=== PATIENT | female | born 1990 | race Caucasian/White ===

== ENCOUNTER 2017-12-10 18:32 | Emergency (ER) | payer OTHER ==
[2017-12-10] MEDS ORDERED: ACETAMINOPHEN 325 MG TABLET PO ONE (19:24)
--- NOTE | 2017-12-10 19:24 | ER Document Report ---
ED Medical Screen (RME) - General Chief Complaint: Flu Symptoms Stated Complaint: SORE THROAT,BODY PAIN Time Seen by Provider: 12/10/17 19:20 Notes: cold symptoms x 2-3 days, + sore throat. Fever started yesterday. No flu shot this year. + n/v x 3, no diarrhea. I have greeted and performed a rapid initial assessment of this patient. A comprehensive ED assessment and evaluation of the patient, analysis of test results and completion of the medical decision making process will be conducted by additional ED providers. TRAVEL OUTSIDE OF THE [place] IN LAST 30 DAYS: No - Related Data Allergies/Adverse Reactions: No Known Allergies Allergy (Unverified 12/10/17 19:21) Physical Exam - Vital signs Vitals: Temp Pulse Resp BP Pulse Ox 101.5 F H 115 H 18 131/86 H 98 12/10/17 18:37 12/10/17 18:37 12/10/17 18:37 12/10/17 18:37 12/10/17 18:37 Course - Vital Signs Vital signs: Temp Pulse Resp BP Pulse Ox 101.5 F H 115 H 18 131/86 H 98 12/10/17 18:37 12/10/17 18:37 12/10/17 18:37 12/10/17 18:37 12/10/17 19:49
--- NOTE | 2017-12-10 19:49 | ER Document Report ---
HPI - HPI Patient complains to provider of: sore throat, fever, aches Onset: Other - 3 days Quality of pain: Achy Pain Level: 4 Context: 27 yo female with sore throat, odynophagia, fever, bodyaches for 3 days. No cough Associated Symptoms: None Exacerbated by: Denies Relieved by: Denies Similar symptoms previously: Yes Recently seen / treated by doctor: No - ROS ROS below otherwise negative: Yes Systems Reviewed and Negative: Yes All other systems reviewed and negative - CONSTITUTIONAL Constitutional: REPORTS: Fever, Chills - EENT EENT: REPORTS: Sore Throat - RESPIRATORY Respiratory: REPORTS: Coughing Past Medical History - General Information source: Patient - Social History Smoking Status: Never Smoker Chew tobacco use (# tins/day): No Frequency of alcohol use: None Drug Abuse: None Lives with: Family Family History: Reviewed & Not Pertinent Patient has suicidal ideation: No Patient has homicidal ideation: No - Medical History Medical History: Negative Renal/ Medical History: Denies: Hx Peritoneal Dialysis Surgical Hx: Negative Vertical Provider Document - CONSTITUTIONAL Agree With Documented VS: Yes Exam Limitations: No Limitations General Appearance: No Apparent Distress - INFECTION CONTROL TRAVEL OUTSIDE OF THE [place] IN LAST 30 DAYS: No - HEENT HEENT: Normocephalic, Pharyngeal Tenderness, Pharyngeal Erythema. negative: Conjuctival Injection, Tympanic Membrane Red - NECK Neck: Supple, Lymphadenopathy-Left - anterior, Lymphadenopathy-Right - anterior - RESPIRATORY Respiratory: Breath Sounds Normal, No Respiratory Distress O2 Sat by Pulse Oximetry: 98 - CARDIOVASCULAR Cardiovascular: Regular Rate, Regular Rhythm - GI/ABDOMEN Gastrointestinal: Abdomen Soft, Abdomen Non-Tender, No Organomegaly, Normal Bowel Sounds - MUSCULOSKELETAL/EXTREMETIES Musculoskeletal/Extremeties: MAEW, GETACHEW - NEURO Level of Consciousness: Awake, Alert, Appropriate - DERM Integumentary: Warm, Dry, Laceration Course - Vital Signs Vital signs: Temp Pulse Resp BP Pulse Ox 101.5 F H 115 H 18 131/86 H 98 12/10/17 18:37 12/10/17 18:37 12/10/17 18:37 12/10/17 18:37 12/10/17 18:37 Discharge - Discharge Clinical Impression: Strep throat, Fever Condition: Good Disposition: HOME, SELF-CARE Instructions: Acetaminophen, Penicillin V K ([facility]), Strep Throat ([facility]) Additional Instructions: plenty of fluids rest finish the penicillin even if you feel better to er if worse Prescriptions: Penicillin V Potassium [Penicillin Vk 500 mg Tablet] 500 mg PO QID #40 tablet Forms: Return to Work
[2017-12-10] MEDS ORDERED: PENICILLIN V POTASSIUM 500 MG TABLET PO ONE (20:20)
[2017-12-10 20:22] LABS: A TYPE INFLUENZA AG NEGATIVE (NEGATIVE); B INFLUENZA AG NEGATIVE (NEGATIVE)
[2017-12-10 20:39] VITALS: BP 115/75
== END 2017-12-10 20:39 | disposition home or self-care (01) ==
LOC: ER 18:32
DX: J02.0 Streptococcal pharyngitis (principal); R13.10 Dysphagia, unspecified; R50.9 Fever, unspecified; R59.0 Localized enlarged lymph nodes
CPT/HCPCS: 87804; 87880; 99283

== ENCOUNTER 2018-09-12 06:43 | Inpatient (IN) | payer OTHER ==
[2018-09-12] MEDS ORDERED: RINGERS SOLUTION,LACTATED 1,000 ML IV PRN (06:50)
[2018-09-12] MEDS ORDERED: OXYTOCIN/NORMAL SALINE 20 UNIT/1,000 ML RTUINJ IV PRN (06:50)
[2018-09-12] MEDS ORDERED: RINGERS SOLUTION,LACTATED 300 ML IV ONE (06:50)
[2018-09-12 07:51] LABS: ABSOLUTE EOSINOPHILS # (AUTO) 0.1 10^3/uL (0.0-0.6); ABSOLUTE LYMPHOCYTES (AUTO) 2.4 10^3/uL (0.5-4.7); ABSOLUTE MONOCYTES (AUTO) 0.7 10^3/uL (0.1-1.4); ABSOLUTE NEUT (AUTO) 8.5 10^3/uL (1.7-8.2); BASOPHILS % (AUTO) 0.4 % (0-2); EOSINOPHILS % (AUTO) 0.8 % (0-6); LYMPHOCYTES % (AUTO) 20.8 % (13-45); MEAN CORPUSCULAR HEMOGLOBIN 25.6 pg (27.0-33.4); MEAN CORPUSCULAR HGB CONC 32.4 g/dL (32.0-36.0); MEAN CORPUSCULAR VOLUME 79 fl (80-97); MONOCYTES % (AUTO) 5.8 % (3-13); PLATELET COUNT 250 10^3/uL (150-450); RED CELL DISTRIBUTION WIDTH 19.1 % (11.5-14.0); SEGMENTED NEUTROPHILS % (AUTO) 72.2 % (42-78); TOTAL CELLS COUNTED % (AUTO) 100 %; WHITE BLOOD COUNT 11.7 10^3/uL (4.0-10.5)
[2018-09-12 08:08] LABS: APPEARANCE,URINE CLOUDY; BILIRUBIN,URINE NEGATIVE (NEGATIVE); COLOR,URINE YELLOW; GLUCOSE, URINE NEGATIVE (NEGATIVE); KETONES,URINE NEGATIVE (NEGATIVE); LEUKOCYTE ESTERASE,URINE TRACE (NEGATIVE); NITRITE,URINE NEGATIVE (NEGATIVE); PROTEIN,URINE 100 mg/dL (NEGATIVE); URINE SPECIFIC GRAVITY 1.027
[2018-09-12 08:12] LABS: ALANINE AMINOTRANSFERASE 21 U/L (9-52); ALBUMIN 3.1 g/dL (3.5-5.0); ALKALINE PHOSPHATASE 219 U/L (38-126); ANION GAP 11 (5-19); ASPARTATE AMINO TRANSFERASE 24 U/L (14-36); BILIRUBIN,DIRECT 0.2 mg/dL (0.0-0.4); BILIRUBIN,TOTAL 0.6 mg/dL (0.2-1.3); BLOOD UREA NITROGEN 13 mg/dL (7-20); CALCIUM 9.2 mg/dL (8.4-10.2); CARBON DIOXIDE 19 mmol/L (22-30); CHLORIDE 107 mmol/L (98-107); GLUCOSE 133 mg/dL (75-110); POTASSIUM 4.2 mmol/L (3.6-5.0); SODIUM 136.9 mmol/L (137-145); TOTAL PROTEIN 6.3 g/dL (6.3-8.2); URIC ACID 6.5 mg/dL (2.5-6.2)
--- NOTE | 2018-09-12 08:13 | Admission Physical ---
Datetime Report Generated by CPN: 09/12/2018 08:13 CURRENT ADMISSION Chief Complaint: Scheduled Induction of Labor Indication for Induction: Gestational HTN Admit Impression : Term, Intrauterine ; Intact Membranes; Induction of Labor Admit Plan: Admit to Unit; Initiate Labor Induction Protocol ALLERGIES Medication Allergies: No Medication Allergies: No Known Allergies (09/12/2018) Latex: No Latex Allergies Food Allergies: N/A Environmental Allergies: Seasonal OBSTETRICAL HISTORY EDC: 09/17/2018 00:00 : 1 Para: 0 Term: 0 : 0 SAB: 0 IAB: 0 Ectopic: 0 Livin Cesareans: 0 VBACs: 0 Multiple Births: 0 Gestational Diabetes: No Rh Sensitization: No Incompetent Cervix: No JED: No Infertility: No ART Treatment: No Uterine Anomaly: No IUGR: No Hx Previous C/S: No Macrosomia: No Hx Loss/Stillborn: No PIH: No Hx : No Placenta Previa/Abruption: No Depression/PP Depression: No PTL/PROM: No Post Hemorrhage: No Obstetrical History Comments: G1 - Current, GHTN SEE RECORDS Alcohol: No Marijuana : No Cocaine: No Other Illicit Drugs: No Cigarettes: Former Smoker. 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 Surgery: No Heart Disease: No Hosp/Surgery: Yes Autoimmune Disorder: No Anesthetic Complications: No Kidney Disease: No Abnormal Pap Smear: No Neuro/Epilepsy: No Psychiatric Disorders: No Other Medical Diseases: No Hepatitis/Liver Disease: No Significant Family History: No Varicosities/Phlebitis: No Trauma/Violence : No Thyroid Dysfunction: Yes Medical History Comments: wisdom teeth, hypothyroid INFECTIOUS HISTORY Gonorrhea: No Genital Herpes: No Chlamydia: Yes Tuberculosis: No Syphilis: No Hepatitis: No HIV/AIDS Exposure: No Rash or Viral Illness: No HPV: No Infectious History Comments: 2014 PHYSICAL EXAM General: Normal HEENT: Normal Neurologic: Normal Thyroid: Normal Heart: Normal Lungs: Normal Breast: Normal Back: Normal Abdomen: Normal Genitourinary Exam: Normal Extremities: Normal DTRs: Normal Pelvic Type: Adequate Vital Signs: Reviewed; Within Normal Limits VAGINAL EXAM Contraction Comments: occassional MEMBRANES Pooling: Positive FETUS A EGA: 39.2 Monitoring: External US FHR- Baseline: 125 Variability: Moderate 6-25bpm Accelerations: 15X15 Decelerations: None FHR Category: Category I Admit Comment: here this morning for IOL d/t GHTN. Pt doing well this morning, no complaints. Denies headache, bleeding or SROM. VE in the office yesterday 2. Hx of Hypothyroidism, GBS negative. Attending MD today is Dr Melendez. PLANS FOR LABOR AND DELIVERY Pain Management: Medications; Epidural Feeding Preference: Breast Benefit of Breast Feed Discussed: Yes Circumcision: Yes INFORMED CONSENT Assignment: Ayala Melendez MD Signature: with User ID: [email or web address] : with User ID: [email or web address]
[2018-09-12] MEDS ORDERED: OXYTOCIN/NORMAL SALINE 0 UNIT/0 ML RTUINJ ONE (08:46)
[2018-09-12] MEDS ORDERED: OXYTOCIN 10 UNIT/ML VIAL ONE (08:46)
[2018-09-12] MEDS ORDERED: LIDOCAINE 1% INJ-PF (10 MG/ML) 30 ML SDV ONE (08:46)
[2018-09-12] MEDS ORDERED: MISOPROSTOL 0.2 MG TABLET ONE (08:46)
[2018-09-12 13:06] LABS: URINE AMPHETAMINES SCREEN NEGATIVE; URINE BARBITURATES SCREEN NEGATIVE; URINE BENZODIAZEPINES SCREEN NEGATIVE; URINE COCAINE SCREEN NEGATIVE; URINE MARIJUANA (THC) SCREEN NEGATIVE; URINE METHADONE SCREEN NEGATIVE; URINE PHENCYCLIDINE SCREEN NEGATIVE
[2018-09-12 13:10] LABS: UR PRO/CREAT RATIO RESULT 0.1 mg/mg (0.0-0.2); URINE CREATININE 340.3 mg/dL (16-327); URINE PROTEIN 17.8 mg/dL (<12)
--- NOTE | 2018-09-12 13:25 | L&D Progress Notes ---
PROGRESS NOTES Datetime Report Generated by CPN: 09/12/2018 13:24 PROGRESS NOTE Impression: Reassuring Heart Rate Procedures: Artificial ROM; Sterile Vag Exam Plan: Continue Present Management; Induction Vital Signs : Reviewed; Within Normal Limits Comment: IOL for GHTN, Pitocin infusing, pt remains comfortable with the contractions, but plans an epidural. Denies headache. GBS negative. AROM with large amount of clear fluid noted. VAGINAL EXAM Dilatation: 2 Effacement: 80 Station: -2 Contractions: q1-2 Contractions: intact Contractions: occassional MEMBRANES Pooling: Positive Membranes: Ruptured Membranes: Intact Amniotic Fluid Color: Bloody FETUS A FHR - Baseline: 125 Monitoring: External US Variability: Moderate 6-25bpm Accelerations: 15X15 Decelerations: None FHR Category: Category I SIGNATURE SIGNATURE: [id number];[id number] SIGNATURE: [id number] Assignment: Ayala Melendez MD Signature: with User ID: [email or web address] : with User ID: [email or web address]
[2018-09-12] MEDS ORDERED: PHENYLEPHRINE HCL INJ/PF 10 MG/1 ML SDV ONE (17:00)
[2018-09-12] MEDS ORDERED: FENTANYL CITRATE INJ/PF 100 MCG/2 ML AMPUL ONE (17:00)
[2018-09-12] MEDS ORDERED: EPHEDRINE SULFATE INJ 50 MG/1 ML AMPULE ONE (17:00)
[2018-09-12] MEDS ORDERED: BUPIVACAINE HCL 0.5 % INJ/PF 30 ML SDV ONE (17:03)
[2018-09-12] MEDS ORDERED: FENTANYL/BUPIVACAINE/NS/PF 300 MCG/150 ML RTUINJ EPI ONE (17:03)
--- NOTE | 2018-09-12 17:07 | L&D Progress Notes ---
PROGRESS NOTES Datetime Report Generated by CPN: 09/12/2018 17:06 PROGRESS NOTE Impression: Normal Progression of Labor Procedures: Sterile Vag Exam Plan: Continue Present Management; Augmentation; Anticipate Vaginal Delivery Vital Signs : Reviewed; Within Normal Limits Comment: Pitocin infusing, pt being bolused for an epidural. ROM, clear fluid, GBS negative. Attending MD is Dr Melendez, agrees with POC VAGINAL EXAM Dilatation: 4 Effacement: 90 Station: -2 Contractions: q 2-4 MEMBRANES Membranes: Intact FETUS A FHR - Baseline: 125 Monitoring: External US Variability: Moderate 6-25bpm Accelerations: 15X15 Decelerations: None FETUS C SIGNATURE: [id number];[id number] Assignment: Ayala Melendez MD Signature: with User ID: [email or web address] : with User ID: [email or web address]
[2018-09-12] MEDS ORDERED: OXYTOCIN/NORMAL SALINE 20 UNIT/1,000 ML RTUINJ ONE (21:45)
--- NOTE | 2018-09-13 00:03 | L&D Progress Notes ---
PROGRESS NOTES Datetime Report Generated by CPN: 09/13/2018 00:03 PROGRESS NOTE Impression: Reassuring Heart Rate Procedures: Sterile Vag Exam Plan: Continue Present Management Vital Signs : Reviewed; Within Normal Limits Comment: Pt Complete since 2199, baby ROP, molding noted on exam. On and off pushing, pt is not feeling a very strong urge to push. Now on far left side prone to encourage rotation. Pitocin infusing. Dr Melendez aware of pt status and plan of care. VAGINAL EXAM Dilatation: 10 Effacement: 100 Station: -1 Contractions: q2 FETUS A FHR - Baseline: 115 Monitoring: External US Variability: Moderate 6-25bpm Accelerations: 15X15 FHR Category: Category I FETUS C SIGNATURE: [id number];[id number] Assignment: Ayala Melendez MD Signature: with User ID: [email or web address] : with User ID: [email or web address]
[2018-09-13] MEDS ORDERED: OXYTOCIN 10 UNIT/ML VIAL ONE ×2 (00:18→04:39)
[2018-09-13] MEDS ORDERED: CEFAZOLIN INJ 1 GM VIAL ONE ×2 (02:18→02:19)
[2018-09-13] MEDS ORDERED: CITRIC ACID/SODIUM CITRATE ORAL SOLN 15 ML UDCUP ONE ×2 (02:20→02:59)
--- NOTE | 2018-09-13 02:21 | L&D Progress Notes ---
PROGRESS NOTES Datetime Report Generated by CPN: 09/13/2018 02:21 PROGRESS NOTE Impression: Arrest of Dilatation/Descent Procedures: Sterile Vag Exam Plan: Deliver- Section Informed Consent Obtained: Section Delivery; Risks, Benefits and Alternatives Discussed Comment: c/c/0 after pushing for 2.5 hours. caput to +1. reviewed cervical exam with patient and reviewed recommendations for ceasarean section for arrest of descent. Patient and verbalized understanding of labor course, recommendations and risks of section. FETUS A R - Baseline: 120 FETUS C SIGNATURE: [id number];[id number] Signature: with User ID: [email or web address]
[2018-09-13] MEDS ORDERED: LIDOCAINE 2%/EPINEPHRINE INJ 20 ML VIAL ONE (02:35)
[2018-09-13] MEDS ORDERED: SODIUM BICARBONATE 8.4% INJ 50 MEQ/50 ML DISP.SYRIN ONE ×2 (02:35→04:44)
[2018-09-13] MEDS ORDERED: EPHEDRINE SULFATE INJ 50 MG/1 ML AMPULE ONE (04:39)
[2018-09-13] MEDS ORDERED: MIDAZOLAM 2 MG/2 ML INJ ONE (04:39)
[2018-09-13] MEDS ORDERED: FENTANYL CITRATE INJ/PF 100 MCG/2 ML AMPUL ONE (04:39)
[2018-09-13] MEDS ORDERED: KETAMINE HCL INJ 500 MG/10 ML VIAL ONE (04:39)
[2018-09-13] MEDS ORDERED: ONDANSETRON HCL INJ/PF 4 MG/2 ML SDV ONE (04:39)
[2018-09-13] MEDS ORDERED: BUPIVACAINE HCL/DEX-WATER/PF 15 MG/2 ML AMPULE ONE (04:54)
[2018-09-13] MEDS ORDERED: CARBOPROST TROMETHAMINE INJ 250 MCG/1 ML AMPULE ONE (05:40)
[2018-09-13] MEDS ORDERED: MORPHINE SULFATE 10 MG/ML INJ ONE (05:40)
[2018-09-13] MEDS ORDERED: PROPOFOL INJ 200 MG/20 ML VIAL IV ONE (05:52)
[2018-09-13] MEDS ORDERED: SIMETHICONE 80 MG TAB.CHEW PO PRN (06:29)
[2018-09-13] MEDS ORDERED: ACETAMINOPHEN 1,000 MG/100 ML RTUPB IV PRN (06:29)
[2018-09-13] MEDS ORDERED: OXYCODONE-ACETAMINOPHEN 5-325 MG TABLET PO PRN (06:29)
[2018-09-13] MEDS ORDERED: PROMETHAZINE HCL INJ 25 MG/1 ML VIAL IV PRN (06:29)
[2018-09-13] MEDS ORDERED: MEASLES,MUMPS&RUBELLA VACC/PF 0.5 ML VIAL SUBCUT PRN (06:29)
[2018-09-13] MEDS ORDERED: OXYTOCIN/NORMAL SALINE 20 UNIT/1,000 ML RTUINJ IV PRN (06:29)
[2018-09-13] MEDS ORDERED: DIPH/PERTUSS(ACELL)/TETANUS VAC/PF 0.5 ML SYR (>=10YO) IM PRN (06:29)
[2018-09-13] MEDS ORDERED: HYDROMORPHONE HCL INJ/PF 2 MG/ML AMPULE IV PRN (06:29)
[2018-09-13] MEDS ORDERED: ACETAMINOPHEN 325 MG TABLET PO PRN (06:29)
--- NOTE | 2018-09-13 06:38 | Brief Operative Note ---
BRIEF OPERATIVE REPORT DATE OF SURGERY: 09/13/18 TIME OF SURGERY: 06:30 PREOPERATIVE DIAGNOSIS: GHTN, 39+2ega, Arrest of descent, POSTOPERATIVE DIAGNOSIS: ROSE MARY - delivered SURGEON: PEPITO CRUZ FINDINGS: normal uterus, normal tubes and ovaries bilaterally. VMI delivered at 0534. weight 9#1oz, Apgars 8/9. IVF 1200ml, UOP 300ml COMPLICATIONS: epidural not working patient required general anesthesia ESTIMATED BLOOD LOSS: 1020ml TISSUE REMOVED OR ALTERED: placenta and cord not sent to the pathology TECHNICAL PROCEDURE: Primary Section.
[2018-09-13] MEDS ORDERED: KETOROLAC TROMETHAMINE INJ/PF 30 MG/1 ML SDV ONE (06:44)
[2018-09-13] MEDS ORDERED: KETOROLAC TROMETHAMINE INJ/PF 30 MG/1 ML SDV IV ONE (06:45)
[2018-09-13] MEDS ORDERED: HYDRALAZINE HCL INJ/PF 20 MG/1 ML SDV IV ONE (06:56)
[2018-09-13] MEDS ORDERED: HYDRALAZINE HCL INJ/PF 20 MG/1 ML SDV ONE (06:56)
--- NOTE | 2018-09-13 07:01 | Delivery Summary ---
Del Sum A-C Datetime Report Generated by CPN: 09/13/2018 07:01 DELIVERY PERSONNEL DELIVERY PERSONNEL: [id number] Delivery Doctor:: Ayala Melendez MD Anesthesiologist:: Deepika Sanderson MD RESERVATIONS AND TICKETING AGENT:: Adams Vizcarra CRNA Labor and Delivery Nurse:: Marita Hoskins RN Orthopedic Rn:: Heather Ellis RN Nursery Nurse:: Yanelis Aguilera RN Nursery Nurse:: Sultana Cannon RN Rn Hemodialysis Charge/CONTINUITY DIRECTOR: ST Grady Rn Hemodialysis Charge/CONTINUITY DIRECTOR: Rosina Regan ST MATERNAL INFORMATION Delivery Anesthesia: General Medications After Delivery: Pitocin Bolus-Please Comment; Other-Please Comment Meds After Delivery Comment: cytotec 1000 mcg buccal Maternal Complications: None LABOR SUMMARY EDC: 09/17/2018 00:00 No. Babies in Womb: 1 Attempted: No Labor Anesthesia: Epidural LABOR INFORMATION Reason for Induction: Gestational Hypertension Onset of Labor: 09/12/2018 16:52 Complete Dilatation: 09/12/2018 22:02 Oxytocin: Induction Group B Beta Strep: negative Antibiotics # of Doses: 0 Antibiotics Time of Last Dose: n/a Steroids Given: None Reason Steroids Not Administered: Not Applicable MEMBRANES Membranes Rupture Method: Artificial Rupture of Membranes: 09/12/2018 13:12 Length of Rupture (hr): 16.37 Amniotic Fluid Color: Clear Amniotic Fluid Amount: Large Amniotic Fluid Odor: None STAGES OF LABOR Stage 1 hr: 5 Stage 1 min: 10 Stage 2 hr: 7 Stage 2 min: 32 Stage 3 hr: 0 Stage 3 min: 1 Total Time in Labor hr: 12 Total Time in Labor min: 43 VAGINAL DELIVERY Episiotomy: None Laceration #1: None Laceration Extension #1: N/A Laceration Repair: Not Applicable Sponge Count Correct: N/A Sharps Count Correct: N/A CSECTION DELIVERY Primary Indication: Arrest of Descent CSection Urgency: Non-Scheduled CSection Incidence: Primary Labor: Labor Elective: Nonelective CSection Incision: Lower Uterine Transverse BABY A INFORMATION Infant Delivery Date/Time: 09/13/2018 05:34 Method of Delivery: Born in Route : No : N/A Forceps: N/A Vacuum Extraction: N/A Shoulder Dystocia : No PRESENTATION/POSITION BABY A Presentation: Cephalic Cephalic Presentation: Vertex Breech Presentation: N/A PLACENTA INFORMATION BABY A Placenta Delivery Time : 09/13/2018 05:35 Placenta Method of Delivery: Manual Removal Placenta Status: Delivered SCORES BABY A Heart Rate 1 min: >100 bpm Resp Effort 1 min: Good Cry Reflex Irritability 1 min: Cough or Sneeze or Pulls Away Muscle Tone 1 min: Active Motion Color 1 min: Blue/Pale Resuscitation Effort 1 min: Tactile Stimulation SCORE 1 MIN: 8 Heart Rate 5 min: >100 bpm Resp Effort 5 min: Good Cry Reflex Irritability 5 min: Cough or Sneeze or Pulls Away Muscle Tone 5 min: Active Motion Color 5 min: Body Talent, Extremities Blue Resuscitation Effort 5 min: N/A SCORE 5 MIN: 9 INFORMATION BABY A Gestational Age at Delivery: 39.3 Gestational Status: Full Term- 39- 40.6 Weeks Outcome : Liveborn Infant Condition : Stable Infant Sex: Male IDENTIFICATION BABY A Infant Verification Date/Time: 09/13/2018 06:00 ID Band Number: [id number] Mother's Name Verified: Yes Infant RN Verifying Infant: Sultana Dewey, RN Additional Verifying Personnel: AKelley Sommer, RN WEIGHT/LENGTH BABY A Birthweight (gm): 4110 Infant Weight (lb): 9 Infant Weight (oz): 1 Infant Length (in): 21.50 Length (cm): 54.61 CORD INFORMATION BABY A No. Cord Vessels: 3 Nuchal Cord : N/A Cord Blood Taken: Yes-For Eval (Mom's Blood Type - or O+) Suction: Mouth; Nose ASSESSMENT BABY A Infant Complications: None Physical Findings at Delivery: Caput Succedaneum; Molding of the Head Physical Findings- Other: Initial assessment to be performed by nursery nurse who is at bedside Infant Respirations: Appears Normal Audio Director/ALS Called : No Infant Care By: Sultana Aguilera RN Transferred To: [facility]
[2018-09-13] MEDS ORDERED: MEPERIDINE HCL/PF INJ 25 MG/1 ML DISP.SYRIN ONE (07:21)
--- NOTE | 2018-09-13 07:44 | Operative Report ---
Operative Report DATE OF SURGERY: 09/13/18 PREOPERATIVE DIAGNOSIS: GHTN, 39+2ega, Arrest of descent, POSTOPERATIVE DIAGNOSIS: ROSE MARY - delivered OPERATION: Primary Section. SURGEON: PEPITO CRUZ TISSUE REMOVED OR ALTERED: placenta and cord not sent to the pathology ESTIMATED BLOOD LOSS: 1020ml INTRAOPERATIVE FINDINGS: normal uterus, normal tubes and ovaries bilaterally. VMI delivered at 0534. weight 9#1oz, Apgars 8/9. IVF 1200ml, UOP 300ml
[2018-09-13] MEDS ORDERED: ACETAMINOPHEN 1,000 MG/100 ML RTUPB IV ONE (07:45)
[2018-09-13] MEDS: LEVOTHYROXINE SODIUM 0.1 MG TABLET PO SCH ×2 (09:00→09:53)
[2018-09-13] MEDS: DOCUSATE SODIUM 100 MG CAPSULE PO SCH ×2 (09:50→17:53)
[2018-09-13] MEDS: PRENATAL VITAMIN W DHA CAPSULE PO SCH (09:50)
[2018-09-13] MEDS: OXYCODONE-ACETAMINOPHEN 5-325 MG TABLET PO PRN ×2 (09:50→17:55)
--- NOTE | 2018-09-13 10:06 | PDOC PROGRESS REPORT ---
Subjective-OB Progress Note for:: 09/13/18 Subjective: delivery day, pt doing well on PP unit, holding baby, plans to breastfeed. No complaints Physical Exam (OB) Vital Signs: Temp Pulse Resp BP Pulse Ox 99.2 F 99 16 143/79 H 09/13/18 08:46 09/13/18 08:46 09/13/18 08:46 09/13/18 08:46 Intake & Output 09/12/18 09/13/18 09/14/18 06:59 06:59 06:59 Weight 137.5 kg - General General Appearance: Appears well, Alert - Incision: Well Approximated Closure Type: Surgical Glue - Lochia Lochia Amount: Scant < 10 ml Lochia Color: Rubra/Red - Abdomen Description: Soft Hernia Present: No Bowel Sounds: Hypoactive Flatus Presence: Absent Fundal Description: Firm Fundal Height: u/u - u/2 - HEENT Head: Normocephalic Eyes: Normal - Respiratory Respiratory Status: No respiratory distress Chest Status: Nontender Breath sounds: Clear - Cardiovascular Rhythm: Regular Heart Sounds: Normal auscultation - Abdominal Inspection: Normal Distension: No distension Tenderness: Nontender Organomegaly: No organomegaly - Genitourinary Genitourinary Note: buitrago cath in place - Extremities Upper extremity: Edema Lower extremities: Edema - Neurological Cognition: Normal Orientation: AAOx4 Speech: Normal Sensory: Normal - Psychological Associated symptoms: Normal affect, Normal mood - Skin Skin Temperature: Warm Skin Moisture: Dry Skin Color: Normal Objective-Diagnostic Laboratory: 09/12/18 07:29 09/12/18 07:29 Assessment and Plan(PN) - Assessment and Plan (1) Arrest of descent, delivered, current hospitalization Is this a current diagnosis for this admission?: Yes (2) Gestational hypertension Qualifiers: Trimester: third trimester Qualified Code(s): O13.3 - Gestational [ -induced] hypertension without significant proteinuria, third trimester Is this a current diagnosis for this admission?: Yes (3) S/P primary low transverse Is this a current diagnosis for this admission?: Yes - Time Spent with Patient Time with patient: Less than 15 minutes - Disposition Anticipated Discharge: Home Within: within 48 hours
[2018-09-13] MEDS: KETOROLAC TROMETHAMINE INJ/PF 30 MG/1 ML SDV IV SCH ×2 (13:07→22:36)
[2018-09-14] MEDS: OXYCODONE-ACETAMINOPHEN 5-325 MG TABLET PO PRN ×3 (04:13→19:51)
[2018-09-14] MEDS: IBUPROFEN 800 MG TABLET PO SCH ×4 (06:11→23:54)
[2018-09-14] MEDS: LEVOTHYROXINE SODIUM 0.1 MG TABLET PO SCH (06:11)
[2018-09-14 06:26] LABS: HEMATOCRIT 24.6 % (36.0-47.0); MEAN CORPUSCULAR HGB CONC 32.9 g/dL (32.0-36.0); MEAN CORPUSCULAR VOLUME 79 fl (80-97); PLATELET COUNT 200 10^3/uL (150-450); RED BLOOD COUNT 3.13 10^6/uL (3.72-5.28); RED CELL DISTRIBUTION WIDTH 18.8 % (11.5-14.0); WHITE BLOOD COUNT 12.7 10^3/uL (4.0-10.5)
[2018-09-14 06:52] LABS: HEMOGLOBIN 8.1 g/dL (12.0-15.5)
--- NOTE | 2018-09-14 09:48 | PDOC PROGRESS REPORT ---
Subjective-OB Progress Note for:: 09/14/18 Subjective: Post Op Day #1, doing well, , O+, Rubella immune, no complaints of headache, hx GHTN Physical Exam (OB) Vital Signs: Temp Pulse Resp BP Pulse Ox 98.2 F 89 16 129/84 H 97 09/14/18 07:46 09/14/18 07:46 09/14/18 07:46 09/14/18 07:46 09/14/18 07:46 Intake & Output 09/13/18 09/14/18 09/15/18 06:59 06:59 06:59 Intake Total 1000 1580 Output Total 650 Balance 1000 930 - General General Appearance: Appears well, Alert In distress: None - PIH/Pre-Eclampsia Clonus: Negative Headache: Absent Epigastric Pain: No Visual Changes: No - Dressing Removed: No Incision: Open, Well Approximated Closure Type: steristrip - Lochia Lochia Amount: Scant < 10 ml Lochia Color: Rubra/Red - Abdomen Description: Soft, Flat Hernia Present: No Fundal Description: Firm, Midline Fundal Height: u/u - u/2 - Respiratory Respiratory Status: No respiratory distress - Abdominal Inspection: Normal Distension: No distension Tenderness: Nontender - Genitourinary Genitourinary Note: voiding - Extremities Upper extremity: Normal inspection Lower extremities: Other - 1+ edema - Neurological Cognition: Normal Orientation: AAOx4 - Psychological Associated symptoms: Normal affect, Normal mood - Skin Skin Temperature: Warm Skin Moisture: Dry Skin Color: Normal Objective-Diagnostic Laboratory: 09/14/18 06:07 09/12/18 07:29 09/14/18 06:07 WBC 12.7 H RBC 3.13 L Hgb 8.1 L D Hct 24.6 L MCV 79 L MCH 26.0 L MCHC 32.9 RDW 18.8 H Plt Count 200 Assessment and Plan(PN) - Assessment and Plan (1) Arrest of descent, delivered, current hospitalization Is this a current diagnosis for this admission?: Yes (2) Gestational hypertension Qualifiers: Trimester: third trimester Qualified Code(s): O13.3 - Gestational [ -induced] hypertension without significant proteinuria, third trimester Is this a current diagnosis for this admission?: Yes (3) S/P primary low transverse Is this a current diagnosis for this admission?: Yes (4) Anemia, Is this a current diagnosis for this admission?: Yes - Time Spent with Patient Time with patient: Less than 15 minutes Medications reviewed and adjusted accordingly: Yes - Disposition Anticipated Discharge: Home Within: within 24 hours
[2018-09-14] MEDS: FERROUS SULFATE 325 MG TABLET PO SCH (10:23)
[2018-09-14] MEDS: DOCUSATE SODIUM 100 MG CAPSULE PO SCH ×2 (10:23→17:35)
[2018-09-14] MEDS: PRENATAL VITAMIN W DHA CAPSULE PO SCH (10:23)
[2018-09-15] MEDS: OXYCODONE-ACETAMINOPHEN 5-325 MG TABLET PO PRN (03:17)
[2018-09-15] MEDS: LEVOTHYROXINE SODIUM 0.1 MG TABLET PO SCH (05:13)
[2018-09-15] MEDS: IBUPROFEN 800 MG TABLET PO SCH ×2 (05:13→14:12)
[2018-09-15] MEDS: FERROUS SULFATE 325 MG TABLET PO SCH (09:11)
[2018-09-15] MEDS: DOCUSATE SODIUM 100 MG CAPSULE PO SCH (09:11)
[2018-09-15] MEDS: PRENATAL VITAMIN W DHA CAPSULE PO SCH (09:11)
[2018-09-15 12:12] VITALS: BP 147/90
--- NOTE | 2018-09-15 12:12 | PDOC DISCHARGE SUMMARY ---
Final Diagnosis Discharge Date: 09/15/18 - Final Diagnosis (1) Anemia, Is this a current diagnosis for this admission?: Yes (2) Arrest of descent, delivered, current hospitalization Is this a current diagnosis for this admission?: Yes (3) Gestational hypertension Is this a current diagnosis for this admission?: Yes (4) S/P primary low transverse Is this a current diagnosis for this admission?: Yes Discharge Data - Discharge Medication Prescriptions: Oxycodone HCl/Acetaminophen [Percocet 5-325 mg Tablet] 2 tab PO Q4HP PRN #30 tablet PRN Reason: For Pain Scale 3-5 Ibuprofen [Motrin 800 mg Tablet] 800 mg PO Q8HP PRN #60 tablet PRN Reason: For Pain Scale 1-2 Docusate Sodium [Colace 100 mg Capsule] 100 mg PO BID #60 capsule Ferrous Sulfate [Feosol 325 mg Tablet] 325 mg PO BID #60 tablet Home Medications: Levothyroxine Sodium [Synthroid 0.1 mg Tablet] 0.1 mg PO DAILY 09/12/18 Prenat 115/Iron Fum/Folic/Dss [ 19 Tablet] 1 tab PO DAILY 09/12/18 Docusate Sodium [Colace 100 mg Capsule] 100 mg PO BID #60 capsule 09/15/18 Ferrous Sulfate [Feosol 325 mg Tablet] 325 mg PO BID #60 tablet 09/15/18 Ibuprofen [Motrin 800 mg Tablet] 800 mg PO Q8HP PRN #60 tablet 09/15/18 Iron 1 tab PO BID #0 09/15/18 Oxycodone HCl/Acetaminophen [Percocet 5-325 mg Tablet] 2 tab PO Q4HP PRN #30 tablet 09/15/18 Reason(s) for Admission: Induction of Labor Procedures: NST, Ultrasound Intrapartum Procedure(s): : Low Cervical, Transverse - Diagnosis Test Laboratory: Temp Pulse Resp BP Pulse Ox 98.8 F 100 20 136/80 H 99 09/15/18 11:51 09/15/18 11:51 09/15/18 11:51 09/15/18 11:51 09/15/18 11:51 09/12/18 09/12/18 09/12/18 06:52 07:29 09:05 RBC 4.30 Hgb 11.0 L Hct 34.0 L Urine Opiates Screen Cancelled NEGATIVE 09/14/18 06:07 RBC 3.13 L Hgb 8.1 L D Hct 24.6 L Urine Opiates Screen - Discharge information/Instructions Discharge Activity: Balance Activity w/Rest, No Driving, No Lifting Over 10 Pounds, No Lifting/Push/Pulling, Pelvic Rest, No tub bath, Walk Frequently Discharge Diet: As Tolerated, Regular Disposition: HOME, SELF-CARE Follow up with: [facility]: 4, Days - incision and BP check
== END 2018-09-15 14:22 | disposition home or self-care (01) | DRG 788 ==
LOC: LR 06:43 → 2S 09-13 08:40
PROVIDERS: ADMIT Student in an Organized Health Care Education/Training Program; ATTEND Student in an Organized Health Care Education/Training Program
PROC: 10D00Z1 Extraction of Products of Conception, Low, Open Approach (ICD-10-PCS; principal; 2018-09-13)
DX: O13.4 Gestational [pregnancy-induced] hypertension without significant proteinuria, complicating childbirth (principal); O99.284 Endocrine, nutritional and metabolic diseases complicating childbirth; E03.9 Hypothyroidism, unspecified; O62.1 Secondary uterine inertia; Z3A.39 39 weeks gestation of pregnancy; Z37.0 Single live birth
CPT/HCPCS: 1961; 36415; 80053; 80307; 81001; 82570; 83615; 84156; 84550; 85025; 85027; 86592; 86850; 86900; 86901; 94799; J0131; J0360; J0690; J1885; J2175; J2250; J2270; J2370; J2405; J2590; J2704; J3010; J3490

== ENCOUNTER → 2019-04-29 | Outpatient (CLI) | payer OTHER | LOC: OD 14:47 | PROVIDERS: ATTEND Family Medicine | DX: E03.9 Hypothyroidism, unspecified (principal) | CPT/HCPCS: 36415; 84443 ==

== ENCOUNTER → 2019-05-27 | Outpatient (CLI) | payer OTHER ==
[2019-05-27 16:41] LABS: TOTAL T3 1.37 ng/mL (0.970-1.69)
== END ==
LOC: OD 15:03
PROVIDERS: ATTEND Family Medicine
DX: R79.89 Other specified abnormal findings of blood chemistry (principal)
CPT/HCPCS: 36415; 84436; 84443; 84480; 86376

== ENCOUNTER → 2019-06-10 | Outpatient (CLI) | payer OTHER | LOC: OD 15:10 | PROVIDERS: ATTEND Family Medicine | DX: E23.7 Disorder of pituitary gland, unspecified (principal) | CPT/HCPCS: 36415; 82024; 83001; 83002; 84146 ==

== ENCOUNTER → 2019-06-29 | Outpatient (CLI) | payer OTHER ==
--- NOTE | 2019-06-30 09:42 | RADIOLOGY REPORT (SQ) ---
EXAM DESCRIPTION: U/S THYROID/SFT TISS HD NECK COMPLETED DATE/TIME: 06/29/2019 6:15 pm REASON FOR STUDY: R79.89 OTHER SPECIFIED ABNORMAL FINDINGS OF BLOOD CHEMISTRY R79.89 OTHER SPECIFIE D ABNORMAL FINDINGS OF BLOOD CHEMISTRY COMPARISON: None. TECHNIQUE: Dynamic and static noe-scale images acquired of the thyroid gland. Selected additional c olor/power Doppler images recorded. All images stored to PACS. LIMITATIONS: None. FINDINGS: RIGHT LOBE: Right lobe measures 4.5 x 1.7 x 1.5 cm. Heterogeneous echotexture. There is a solid hypoechoic nodule along the posterior aspect of the right lower pole measuring 1.1 x 0.9 x 0. 8 cm (TI-RADS 4). LEFT LOBE: Left lobe measures 4.9 x 1.4 x 1.8 cm. Heterogeneous echotexture. There is a solid isoec hoic nodule along the posterior aspect of the left lower pole measuring 1.3 x 1.1 x 0.9 cm (TI rads 4 ). ISTHMUS: Unremarkable measuring 8 mm. Homogeneous echotexture. No cystic or solid masses. OTHER: No other significant finding. IMPRESSION: 1.1 x 0.9 x 0.8 cm hypoechoic nodule along the posterior aspect of the right lower pole (TI RADS 4). Alternatively, this nodule may represent a parathyroid adenoma. Recommend correlation with lab values. Parathyroid scan could also be considered. 1.3 x 1.1 x 0.9 cm isoechoic nodule along the posterior aspect of the left lower pole (TI-RADS 4). T his nodules is also moderately suspicious for a parathyroid adenoma. These nodules do not meet criteria for biopsy at this time. See follow-up recommendations as below. The [place] [employer] (ACR) Thyroid Imaging Reporting And Data System (TI-RADS) is an ul trasound feature based summed scoring system of risk categorization and management recommendations fo r thyroid nodules. TI-RADS assessment categories are as follows: 0 - Incomplete exam: Additional imaging or comparison to prior examinations recommended. 1. - Benign: Fine-needle aspiration or follow-up not routinely recommended in the absence of clinical change. 2. - Not suspicious: Fine-needle aspiration or follow-up not routinely recommended in the absence of clinical change. 3. - Mildly suspicious: Fine-needle aspiration recommended if greater than or equal to 2.5 cm in size . Ultrasound follow-up recommended if greater than or equal to 1.5 cm in size. 4. - Moderately suspicious: Fine-needle aspiration recommended if greater than or equal to 1.5 cm in size. Ultrasound follow-up recommended if greater than or equal to 1.0 cm in size. 5. - Highly suspicious: Fine-needle aspiration recommended if greater than or equal to 1.0 cm in size . Ultrasound follow-up recommended if greater than or equal to 0.5 cm in size. TECHNICAL DOCUMENTATION: JOB ID: [id number] [employer]- All Rights Reserved Reading location - IP/workstation name: [email or web address]
== END ==
LOC: RAD 17:35
PROVIDERS: ATTEND Family Medicine
DX: R79.89 Other specified abnormal findings of blood chemistry (principal)
CPT/HCPCS: 76536

== ENCOUNTER → 2019-07-22 | Outpatient (CLI) | payer OTHER | LOC: OD 16:34 | PROVIDERS: ATTEND Family Medicine | DX: D35.1 Benign neoplasm of parathyroid gland (principal) | CPT/HCPCS: 36415; 82330; 83970 ==

== ENCOUNTER → 2019-07-27 | Outpatient (CLI) | payer OTHER ==
--- NOTE | 2019-07-27 16:00 | RADIOLOGY REPORT (SQ) ---
EXAM DESCRIPTION: NM PARATHYROID IMAGING COMPLETED DATE/TIME: 07/27/2019 3:26 pm REASON FOR STUDY: PARATHYROID ADENOMA (D35.1) D35.1 BENIGN NEOPLASM OF PARATHYROID GLAND COMPARISON: Thyroid ultrasound dated 06/29/2019 RADIONUCLIDE AND DOSE: 21.7 millicuries Tc-99m Sestamibi. The route of agent administration: Intravenous ADDITIONAL DRUGS AND DOSES: None. TECHNIQUE: Early and delayed images of the neck acquired following radionuclide administration. LIMITATIONS: None. FINDINGS: Thyroid: Normal size. Homogeneous activity. On delayed images there is mild residual act ivity throughout both lobes of the thyroid gland. Parathyroid: Retained activity in the thyroid this is homogeneous and diffuse bilaterally. No focal retained activity is identified. Other: No other significant findings. IMPRESSION: Indeterminate study. There is persistent activity in the thyroid head bilaterally. Thi s could be due to bilateral adenomas. Retained activity in the thyroid gland is also a possibility. TECHNICAL DOCUMENTATION: JOB ID: [id number] [employer]- All Rights Reserved Reading location - IP/workstation name: [email or web address]
== END ==
LOC: RAD 11:24
PROVIDERS: ATTEND Family Medicine
DX: D35.1 Benign neoplasm of parathyroid gland (principal)
CPT/HCPCS: 78070; A9500; Q9969

== ENCOUNTER → 2019-08-17 | Outpatient (CLI) | payer OTHER ==
[2019-08-17 13:16] LABS: ALBUMIN 4.3 g/dL (3.5-5.0); ANION GAP 11 (5-19); BLOOD UREA NITROGEN 15 mg/dL (7-20); CALCIUM 9.4 mg/dL (8.4-10.2); CARBON DIOXIDE 25 mmol/L (22-30); CHLORIDE 104 mmol/L (98-107); GLUCOSE 99 mg/dL (75-110); PHOSPHORUS 3.9 mg/dL (2.5-4.5); POTASSIUM 5.1 mmol/L (3.6-5.0)
[2019-08-17 13:25] LABS: FREE T4 (FREE THYROXINE) 0.74 ng/dL (0.78-2.19)
[2019-08-17 13:39] LABS: THYROID STIMULATING HORMONE 20.9 uIU/mL (0.47-4.68)
== END ==
LOC: OD 11:37
PROVIDERS: ATTEND Internal Medicine
DX: E03.9 Hypothyroidism, unspecified (principal); R93.89 Abnormal findings on diagnostic imaging of other specified body structures; M25.519 Pain in unspecified shoulder
CPT/HCPCS: 36415; 80069; 82306; 84439; 84443

== ENCOUNTER → 2019-10-09 | Outpatient (CLI) | payer OTHER ==
[2019-10-09 17:33] LABS: FREE T4 (FREE THYROXINE) 1.19 ng/dL (0.78-2.19)
[2019-10-09 17:47] LABS: THYROID STIMULATING HORMONE 4.84 uIU/mL (0.47-4.68)
== END ==
LOC: OD 16:16
PROVIDERS: ATTEND Internal Medicine
DX: E03.9 Hypothyroidism, unspecified (principal); E04.2 Nontoxic multinodular goiter
CPT/HCPCS: 36415; 84439; 84443

== ENCOUNTER → 2019-10-19 | Outpatient (CLI) | payer OTHER | LOC: OD 08:36 | PROVIDERS: ATTEND Internal Medicine | DX: E66.9 Obesity, unspecified (principal) | CPT/HCPCS: 36415; 82533 ==

== ENCOUNTER → 2019-12-03 | Outpatient (CLI) | payer OTHER ==
[2019-12-03 17:56] LABS: FREE T4 (FREE THYROXINE) 1.21 ng/dL (0.78-2.19)
[2019-12-03 18:09] LABS: THYROID STIMULATING HORMONE 5.76 uIU/mL (0.47-4.68)
== END ==
LOC: OD 16:43
PROVIDERS: ATTEND Internal Medicine
DX: E03.9 Hypothyroidism, unspecified (principal)
CPT/HCPCS: 36415; 84439; 84443

== ENCOUNTER → 2020-02-08 | Outpatient (CLI) | payer OTHER ==
[2020-02-08 16:50] LABS: FREE T4 (FREE THYROXINE) 1.33 ng/dL (0.78-2.19)
[2020-02-08 17:03] LABS: THYROID STIMULATING HORMONE 2.77 uIU/mL (0.47-4.68)
== END ==
LOC: OD 15:22
PROVIDERS: ATTEND Internal Medicine
DX: E03.9 Hypothyroidism, unspecified (principal)
CPT/HCPCS: 36415; 84439; 84443

== ENCOUNTER → 2020-03-23 | Outpatient (CLI) | payer OTHER ==
[2020-03-23 12:44] LABS: HEMATOCRIT 36.2 % (36.0-47.0); HEMOGLOBIN 11.8 g/dL (12.0-15.5); MEAN CORPUSCULAR HEMOGLOBIN 23.5 pg (27.0-33.4); MEAN CORPUSCULAR HGB CONC 32.7 g/dL (32.0-36.0); MEAN CORPUSCULAR VOLUME 72 fl (80-97); PLATELET COUNT 342 10^3/uL (150-450); RED BLOOD COUNT 5.03 10^6/uL (3.72-5.28); RED CELL DISTRIBUTION WIDTH 17.3 % (11.5-14.0); WHITE BLOOD COUNT 7.5 10^3/uL (4.0-10.5)
[2020-03-23 13:01] LABS: IRON(TIBC) 12.5 ug/dL (37-170)
== END ==
LOC: OD 11:59
PROVIDERS: ATTEND Internal Medicine
DX: R53.83 Other fatigue (principal)
CPT/HCPCS: 36415; 82533; 82607; 82728; 83540; 83550; 85027

== ENCOUNTER → 2020-04-08 | Outpatient (CLI) | payer OTHER ==
[2020-04-08 16:10] LABS: INTERNATIONAL RATION (INR) 1.11; PROTHROMBIN TIME 14.3 SEC (11.4-15.4)
[2020-04-08 16:11] LABS: PARTIAL THROMBOPLASTIN TIME 33.8 SEC (23.5-35.8)
== END ==
LOC: OD 14:44
PROVIDERS: ATTEND Family Medicine
DX: Z01.812 Encounter for preprocedural laboratory examination (principal); Z79.01 Long term (current) use of anticoagulants
CPT/HCPCS: 36415; 85610; 85730

== ENCOUNTER → 2020-04-22 | Outpatient (CLI) | payer OTHER | LOC: OD 08:46 | PROVIDERS: ATTEND Internal Medicine | DX: E27.40 Unspecified adrenocortical insufficiency (principal) | CPT/HCPCS: 36415; 82024; 82533 ==

== ENCOUNTER → 2020-08-26 | Outpatient (CLI) | payer OTHER ==
[2020-08-26 16:32] LABS: FREE T4 (FREE THYROXINE) 1.56 ng/dL (0.78-2.19)
== END ==
LOC: OD 14:50
PROVIDERS: ATTEND Internal Medicine
DX: E03.9 Hypothyroidism, unspecified (principal)
CPT/HCPCS: 36415; 84439; 84443

== ENCOUNTER → 2020-11-14 | Outpatient (CLI) | payer OTHER ==
[2020-11-14 17:16] LABS: FREE T4 (FREE THYROXINE) 1.85 ng/dL (0.78-2.19)
[2020-11-14 17:30] LABS: THYROID STIMULATING HORMONE 1.2 uIU/mL (0.47-4.68)
== END ==
LOC: OD 14:57
PROVIDERS: ATTEND Internal Medicine
DX: E03.9 Hypothyroidism, unspecified (principal)
CPT/HCPCS: 36415; 84439; 84443

== ENCOUNTER 2020-12-13 09:06 | Day surgery (SDC) | payer OTHER ==
[2020-12-09 11:54] LABS: HEMATOCRIT 38.7 % (36.0-47.0); HEMOGLOBIN 12.6 g/dL (12.0-15.5); MEAN CORPUSCULAR HEMOGLOBIN 24.8 pg (27.0-33.4); MEAN CORPUSCULAR HGB CONC 32.4 g/dL (32.0-36.0); MEAN CORPUSCULAR VOLUME 76 fl (80-97); PLATELET COUNT 310 10^3/uL (150-450); RED BLOOD COUNT 5.07 10^6/uL (3.72-5.28); RED CELL DISTRIBUTION WIDTH 17.1 % (11.5-14.0); WHITE BLOOD COUNT 7.7 10^3/uL (4.0-10.5)
[2020-12-09 12:06] LABS: APPEARANCE,URINE CLOUDY; BILIRUBIN,URINE NEGATIVE (NEGATIVE); COLOR,URINE YELLOW; GLUCOSE, URINE NEGATIVE (NEGATIVE); KETONES,URINE 20 mg/dL (NEGATIVE); LEUKOCYTE ESTERASE,URINE NEGATIVE (NEGATIVE); NITRITE,URINE NEGATIVE (NEGATIVE); PROTEIN,URINE 30 mg/dL (NEGATIVE); URINE SPECIFIC GRAVITY 1.033
[2020-12-09 12:22] LABS: ANION GAP 10 (5-19); BLOOD UREA NITROGEN 15 mg/dL (7-20); CALCIUM 9.5 mg/dL (8.4-10.2); CARBON DIOXIDE 28 mmol/L (22-30); CHLORIDE 102 mmol/L (98-107); POTASSIUM 4.3 mmol/L (3.6-5.0)
[2020-12-09 12:28] LABS: GLUCOSE 92 mg/dL (75-110)
[~2020-12-13 09:06] MED LIST: CEFAZOLIN 2 GM/D5W RTU 2 GM/50 ML RTUPB IV ONE; CEFAZOLIN 2 GM/D5W RTU 2 GM/50 ML RTUPB IV PRN; DEXAMETHASONE SOD PHOSPHATE INJ 4 MG/1 ML VIAL ONE; FENTANYL CITRATE INJ/PF 100 MCG/2 ML AMPUL ONE; LACTATED RINGERS 1000 ML IV PRN; LIDOCAINE 0.5% INJ-PF (5 MG/ML) 50 ML SDV SUBCUT PRN; MIDAZOLAM 2 MG/2 ML INJ ONE; ONDANSETRON HCL INJ/PF 4 MG/2 ML SDV ONE; PROPOFOL INJ 200 MG/20 ML VIAL IV ONE
--- NOTE | 2020-12-13 09:32 | Discharge Summary ---
Discharge Summary (SDC) - Discharge Final Diagnosis: 1. Left closed Colles' fracture. 2. Carpal tunnel syndrome of left wrist Date of Surgery: 12/13/20 Discharge Date: 12/13/20 Condition: Stable Treatment or Instructions: Schedule Follow Up w/ Dr. Audi Werner @ [facility] for Surgery to be seen in 10-14 days or as scheduled [place]: [place]: [place]: Ice and elevate Keep splint clean/dry/intact, do not remove. If your fingers become numb please unwrap the Joss wrap but leave the splint in place, if the sensation does not return within 30 minutes please return to the emergency department. May begin finger range of motion attempting to make full fist. PLease use ibuprofen (motrin or advil) 600-800mg every 8 hours as needed for pain or fever DO NOT TAKE w/ TORADOL may use once TORADOL complete. You may also use acetaminophen (Tyelnol) 1000mg every 4-6 hours as needed for pain or fever. Please be aware that many medication contain acetaminophen, do not exceed a total of 1000mg of acetaminophen every 6 hours. If Ibuprofen and acetaminophen are not sufficient for your pain you may take Percocet/Robbins. Please be aware that the Percocet/Robbins does contain Tyelnol. Stool softener of choice when on pain medication. USE OF [id number] IBUPROFEN: Ibuprofen (Advil, Nuprin, Medipren, Motrin IB) is a medication for fever and pain control. In addition, it has anti- inflammatory effects which may be beneficial, especially in the treatment of injuries. It's best to take ibuprofen with food. Persons with ulcer disease or allergy to aspirin should notify their physician of this before taking ibuprofen. Ibuprofen can be given every four to six hours, for a total of four doses daily. Age Pain or fever dose Antiinflammatory dose 6-8 yr 200 mg (1 tab) 200 mg (1 tab) 9-11 yr 200 mg (1 tab) 200-400 mg (1-2 tab) 11-14 yr 200-400 mg (1-2 tab) 400 mg (2 tab) 15-adult 400 mg (2 tab) 600 mg (3 tab) ORAL NARCOTIC MEDICATION: You have been given a prescription for pain control. This medication is a narcotic. It's best taken with food, as nausea can result if taken on an empty stomach. Don't operate machinery or drive within six hours of taking this m edication. Do not combine this medicine with alcohol, or with any medication which can cause sedation (such as cold tablets or sleeping pills) unless you get permission from the physician. Narcotics tend to cause constipation. If possible, drink plenty of fluids and eat a diet high in fiber and fruits. Please be aware that prescription narcotics also have the potential for abuse. People become addicted to these medications because of the general sense of wellbeing that they induce. This feeling along with a significant reduction in tension, anxiety, and aggression provides a stimulating seductive quality to these drugs. Once your pain is under control, we encourage you to discard your unused narcotics. Prescriptions: Hydrocodone/Acetaminophen [Lortab 7.5-325 mg/15 ml Oral Soln] 10 ml PO Q6H PRN #200 ml PRN Reason: Referrals: JAG CHÁVEZ MD [Primary Care Provider] - Discharge Diet: As Tolerated Respiratory Treatments at Home: Deep Breathing/Coughing Discharge Activity: Activity As Tolerated, No Lifting Over 10 Pounds, No Lifting/Push/Pulling Report the Following to Your Physician Immediately: Shortness of Breath, Fever over 101 Degrees, Unusual Bleeding, Drainage-Yellow
[2020-12-13] MEDS ORDERED: ROPIVACAINE HCL 0.5% INJ/PF (5 MG/1 ML) 30 ML SDV ONE (09:43)
--- NOTE | 2020-12-13 09:51 | EKG REPORT ---
SEVERITY:- NORMAL ECG - SINUS RHYTHM : Confirmed by: Enedelia Colvin MD 13-Dec-2020 09:50:55
--- NOTE | 2020-12-13 09:55 | RADIOLOGY REPORT (SQ) ---
EXAM DESCRIPTION: CHEST SINGLE VIEW IMAGES COMPLETED DATE/TIME: 12/13/2020 9:37 am REASON FOR STUDY: PREOP FOR SX 12/13/20 COMPARISON: None. EXAM PARAMETERS: NUMBER OF VIEWS: One view. TECHNIQUE: Single frontal radiographic view of the chest acquired. RADIATION DOSE: NA LIMITATIONS: None. FINDINGS: LUNGS AND PLEURA: No opacities, masses or pneumothorax. No pleural effusion. MEDIASTINUM AND HILAR STRUCTURES: No masses. Contour normal. HEART AND VASCULAR STRUCTURES: Heart normal in size. Normal vasculature. BONES: No acute findings. HARDWARE: None in the chest. OTHER: No other significant finding. IMPRESSION: 1. NO ACUTE RADIOGRAPHIC FINDING IN THE CHEST. TECHNICAL DOCUMENTATION: JOB ID: [id number] 2010 [employer]- All Rights Reserved Reading location - IP/workstation name: [email or web address]
[2020-12-13] MEDS ORDERED: SUCCINYLCHOLINE CHLORIDE INJ 200 MG/10 ML VIAL ONE (10:38)
[2020-12-13] MEDS ORDERED: MEPERIDINE HCL/PF INJ 25 MG/1 ML DISP.SYRIN IV PRN (11:27)
[2020-12-13] MEDS ORDERED: FENTANYL CITRATE INJ/PF 100 MCG/2 ML AMPUL IV PRN ×3 (11:27)
[2020-12-13] MEDS ORDERED: PROMETHAZINE HCL INJ 25 MG/1 ML VIAL IV PRN ×2 (11:27)
[2020-12-13] MEDS ORDERED: MORPHINE SULFATE 10 MG/ML INJ IV PRN (11:27)
[2020-12-13] MEDS ORDERED: DIPHENHYDRAMINE HCL 50 MG/ML VIAL IV PRN (11:27)
[2020-12-13] MEDS ORDERED: ONDANSETRON HCL INJ/PF 4 MG/2 ML SDV IV PRN ×2 (11:27→14:23)
[2020-12-13] MEDS ORDERED: BUPIVACAINE HCL 0.5 % INJ/PF 30 ML SDV ONE (13:06)
[2020-12-13] MEDS ORDERED: HYDROCOD/ACETAMIN 7.5-325 MG/15 ML ORAL SOLN UDCUP PO PRN (14:23)
[2020-12-13] MEDS ORDERED: HYDROMORPHONE HCL INJ/PF 2 MG/ML AMPULE IV PRN (14:23)
--- NOTE | 2020-12-13 14:23 | Operative Report ---
Operative Report DATE OF SURGERY: 12/13/20 PREOPERATIVE DIAGNOSIS: 1. Left distal radius malunion. 2. Left Carpal tunnel syndrome POSTOPERATIVE DIAGNOSIS: Same OPERATION: 1. Left distal radius osteotomy with placement of iliac crest bone graft. 2. Left Open carpal tunnel release SURGEON: SUKI BARKER 1ST DRAFTING ENGINEER: EDWAR CHONG - Required for fracture reduction, retractor placement and closure ANESTHESIA: GA COMPLICATIONS: None ESTIMATED BLOOD LOSS: Minimal PROCEDURE: Indication for above procedure: 30-year-old female who sustained a fracture of her distal radius as a child. She subsequently went on to malunion. Patient continues to have deformity and discomfort secondary to the malunion. We had a long discussion including observation versus operative intervention. After discussing risks and benefits of both joint decision was made to proceed with operative treatment. Procedure In Detail: Patient was seen and evaluated in the preoperative holding area. The LEFT upper extremity was initialized and marked. Patient received 2g of Ancef IV for bacterial prophylaxis. Patient was taken back to the operative room where transferred to the operative table and placed under general anesthesia. Once they were adequately anesthetized and a nonsterile tourniquet was placed on his upper extremity. A surgical team debriefing was performed ensuring all instrumentation was available, the surgical procedure was discussed with possible concerns reviewed. The upper extremity was prepped with chlorhexidine and alcohol and draped in a sterile fashion. A timeout was done identifying correct patient, procedure and extremity everyone in attendance agree with this and verbalized no concerns.The extremity was exsanguinated the tourniquet was inflated to 250 mmHg. A longitudinal skin incision was made via a volar approach of Michael along the FCR tendon sheath. The FCR tendon sheath was opened and the FCR retracted ulnarly, the palmar cutaneous branch of the median nerve was identified and protected throughout the entirety of the case. The radial artery was identified and retracted radially. Blunt dissection was performed to the FPL which was carefully sweeped ulnarly. This brought me to the pronator quadratus which was elevated off of the distal radius via sharp dissection with a 15 blade to allow later repair. The malunion was exposed and brachioradialis excised. With C arm fluoroscopy a K wire was placed parallel to the attended cut. A extra-articular Acumed distal radius plate was then applied with K wires C arm fluoroscopy was obtained confirming acceptable placement of the plate. The central screw was then drilled to allow for later fixation. Oscillating saw was then utilized with irrigation to avoid osteonecrosis and completed with an osteotome. A lamina bag worker was placed on the radial border correcting patient's radial deviation deformity. The plate was then secured distally with appropriate size locking screws. Initial screw was a bicortical screw which brought the plate securely down to bone. The defect at the osteotomy site was then measured and measured 3 cm x 1 cm. Given the amount of correction decision was made to proceed with placement of iliac crest bone graft. Tourniquet was deflated. Longitudinal skin incision was made 3 cm posterior to the ASIS. Blunt dissection was performed. The overlying fascia of the iliac crest was then incised. The outer and inner tables of the iliac crest was then palpated a Reyes elevator was placed to gently elevate the muscle tissue for a small distance of 3 cm as per measured osteotomy site. Once the iliac crest was exposed oscillating saw was placed with sequential irrigation to avoid osteonecrosis and the triangular bone graft was removed. Additional cancellous bone graft was then obtained. Wound was copiously irrigated with normal saline. Fascia was closed with interrupted 0 Vicryl suture. Subcutaneous tissues were closed with interrupted 3-0 Monocryl suture. Skin was closed running subcuticular 4-0 Monocryl reinforced with Steri-Strips. OpSite was placed at the completion of the surgery. Attention then turned to placement of the bone graft. Extremity was once again exsanguinated and tourniquet was inflated to 250 mmHg. Wound was copiously irrigated with normal saline. A triangular cortical cancellous bone graft was placed into the defect serum was obtained confirming appropriate amount of correction and bone graft within height. The plate was then secured proximally with tenaculum and C arm once again obtained confirming appropriate reduction. A bicortical screw was then placed through the dynamic hole which brought the plate firmly down to bone. I then completed fixation proximally with additional bicortical screw and a bicortical locking screw. The radial styloid screws within the distal aspect of the plate were then switched out for appropriate size variable angle screws. The previous bicortical screw was switched with the appropriate size variable angle screw. Final C-arm fluoroscopy was obtained which demonstrated anabaptist of radial height with negative ulnar variance correction. There is no evidence of DRUJ instability. Sagittal view demonstrated anabaptist of neutral tilt. Attention then turned to the carpal tunnel release. Longitudinal skin incision was made along the radial border of the ring finger proximal to Meehan's cardinal line. Blunt dissection was performed. Palmar fascia was excised under direct visualization. Confines of the transverse carpal ligament was then confirmed. An transverse carpal ligament was excised distally to the adipose protecting the superficial palmar arch and proximally including the volar antebrachial fascia. There is no residual compression noted. Wound was copiously irrigated with normal saline. Decision was closed with interrupted 4-0 Monocryl subcuticular sutures. Tourniquet was then deflated and peripheral bleeding was controlled with bipolar cautery. Pronator quadratus was successfully secured to remanent of the brachial radialis with interrupted 3-0 Monocryl suture. Subcutaneous tissue closed with 3-0 Monocryl suture. Skin was closed with subcuticular 4-0 Monocryl reinforced with Steri-Strips. Patient was then placed in a sugar tong splint with the wrist in neutral position. Sponge counts, instrument counts, needle counts were correct. Patient was then awoken from anesthesia. Transferred from the operating room table to the operating room stretcher. There was no intraoperative complications patient tolerated procedure well stable to PACU. Postop plan: Patient will follow in the office in 2 weeks for recheck will be placed in a short arm cast at that time. We will obtain x-rays at that time. Tourniquet was then deflated and peripheral bleeding was controlled with bipolar cautery. The wound was copiously irrigated with normal saline. There was no evidence of DRUJ instability on examination, Negative Zambrano's test, No crepitus with range of motion at the radiocarpal joint or DRUJ. The pronator quadratus was closed with interrupted 3-0 Monocryl suture. Subcutaneous tissues were closed with interrupted 4-0 Monocryl suture. The skin was closed with a running subcuticular 4-0 Monocryl suture which was reinforced with Dermabond and Steri- Strips. 20 mL of 0.5% Marcaine were injected for postoperative pain control. The tourniquet was then deflated. Was dressed with sterile 4 x 4's and patient was placed in a well-padded volar splint. Sponge counts, instrument counts and needle counts were correct. There was no intraoperative complications patient tolerated procedure well stable to PACU. Postoperative plan: Patient will be switched to a removal brace at first postoperative followup visit and begin range of motion. Patient is encouraged to start vitamin C 500 mg daily for 51 days. Will obtain radiographs at followup of the wrist.
[2020-12-13] MEDS ORDERED: MIDAZOLAM 2 MG/2 ML INJ ONE (14:54)
[2020-12-13] MEDS ORDERED: HYDROMORPHONE HCL INJ/PF 2 MG/ML AMPULE ONE (15:34)
--- NOTE | 2020-12-13 16:07 | RADIOLOGY REPORT (SQ) ---
EXAM DESCRIPTION: NO CHG FLUORO; WRIST LEFT 3 VIEWS IMAGES COMPLETED DATE/TIME: 12/13/2020 3:05 pm REASON FOR STUDY: ORIF LEFT WRIST ASSISTED WITH FLUORO IN OR COMPARISON: None. FLUOROSCOPY TIME: 1 minutes and 9 seconds 4 Images saved to PACS LIMITATIONS: None. PROCEDURE: ORIF left wrist FINDINGS: Images from fluoro document placement of a volar compression plate with multiple screws. IMPRESSION: ORIF left wrist. Refer to operative note for further information. COMMENT: PQRS 6045F: Fluoroscopy time of the procedure is documented in the report. TECHNICAL DOCUMENTATION: JOB ID: [id number] 2010 [employer]- All Rights Reserved Reading location - IP/workstation name: [email or web address]
--- NOTE | 2020-12-13 16:07 | RADIOLOGY REPORT (SQ) ---
EXAM DESCRIPTION: NO CHG FLUORO; WRIST LEFT 3 VIEWS IMAGES COMPLETED DATE/TIME: 12/13/2020 3:05 pm REASON FOR STUDY: ORIF LEFT WRIST ASSISTED WITH FLUORO IN OR COMPARISON: None. FLUOROSCOPY TIME: 1 minutes and 9 seconds 4 Images saved to PACS LIMITATIONS: None. PROCEDURE: ORIF left wrist FINDINGS: Images from fluoro document placement of a volar compression plate with multiple screws. IMPRESSION: ORIF left wrist. Refer to operative note for further information. COMMENT: PQRS 6045F: Fluoroscopy time of the procedure is documented in the report. TECHNICAL DOCUMENTATION: JOB ID: [id number] 2010 [employer]- All Rights Reserved Reading location - IP/workstation name: [email or web address]
[2020-12-13 17:40] VITALS: BP 102/63
== END 2020-12-13 17:15 | disposition home or self-care (01) ==
LOC: OROUT 09:06
PROVIDERS: ATTEND Orthopaedic Surgery
DX: S52.532P Colles' fracture of left radius, subsequent encounter for closed fracture with malunion (principal); X58.XXXD Exposure to other specified factors, subsequent encounter; G56.02 Carpal tunnel syndrome, left upper limb; Z01.812 Encounter for preprocedural laboratory examination; Z20.822 Contact with and (suspected) exposure to COVID-19; E03.9 Hypothyroidism, unspecified; Z79.890 Hormone replacement therapy; Z87.891 Personal history of nicotine dependence; Z98.84 Bariatric surgery status; Z86.79 Personal history of other diseases of the circulatory system; F90.9 Attention-deficit hyperactivity disorder, unspecified type; Z79.899 Other long term (current) drug therapy
CPT/HCPCS: 64721; 25350; 27299; 36415; 85027; 87635; 81025; 80048; 81001; 71045; 73110; 93005; 93010; 64415; 01830; C1713 ×9; C1769; J2795; J2250; J3490; J1100; J3010; J1170; J0330; J2405; J2704; J0690; C9803